=== PATIENT | female | born 1995 | race Caucasian/White ===

== ENCOUNTER 2017-03-01 01:44 | Emergency (ER) | payer BC, OTHER ==
--- NOTE | ~2017-03-01 | CR243 ---
[facility]. [facility] A Service of [facility] & [facility] RADIOLOGY TEXT RESULTS PATIENT: ODETTE CROW LOCATION: SED : [birth year] UNIT #: [id number] AGE: [address]: Mine Shook MD SEX: F ORDER DR: [id number] [place] [id number] E MR#: [id number] Acc #: [id number] NAME: ODETTE CROW : 1995 SEX: F STUDY DATE/TIME: 03/01/2017 02:41 UNIT: SED ROOM: STUDY DESCRIPTION: CR Thoracic Spine 3 Views Attending Physician: Mine Shook M.D. Ordering Physician: Mine Shook M.D. Primary Care Physician: Eduar Navarro M.D. MEDICAL IMAGING REPORT This report is preliminary unless electronic signature is present. EXAM Thoracic sine, 03/01/2017 at 02:41 INDICATION Mid to upper back pain that started Sunday of this week. FINDINGS 3 views of the thoracic spine were obtained and compared with 10/25/2013. No fracture or malalignment is seen. Routine body heights and disc spaces are normal. Incidental note is made of gas-filled colon loops under the right hemidiaphragm. IMPRESSION Normal thoracic spine. Gas-filled colon loops are noted under the right hemidiaphragm. Dictated by... Jimmy Luong Jr., M.D. THIS IS AN ELECTRONICALLY VERIFIED REPORT Jimmy Luong Jr., M.D. at 03/01/2017 6:10 AM VITALY/margarita TD: 03/01/2017 04:50 JOB #: [id number] MEDICAL IMAGING REPORT Page 1 of 1
[~2017-03-01 01:44] MED LIST: AFRIN NASAL SPR15 ML; AMOXICILLIN PO; AMOXICILLIN500 M1 PO; AMOXICILLIN875 MG PO; BACTRIM DS TABL1 TAB PO; IBUPROFEN PO; IBUPROFEN800 MG PO; KEFLEX500 M1 PO; MOTRIN400 MG PO; NO MEDICATIONS; NORFLEX100 M1 PO; PHENERGAN DM1 ML DOB; PHENERGAN DM1 ML PO; VOLTAREN75 MG PO; ZITHROMAX PO; ZITHROMAX1 G/PKT PO; ZOFRAN ODT4 MG PO; ZYRTEC-D TABLE1 EACH PO
[2017-03-01 02:28] LABS: URINE SOURCE CLEAN CATCH
[2017-03-01 02:31] LABS: BASOPHIL% 0.5 % (0-2.5); EOSINOPHIL# 0.2 X10e3 (0-0.7); EOSINOPHIL% 1.8 % (0.0-7.0); HEMATOCRIT 40.2 % (35.0-45.0); HEMOGLOBIN 13.7 gm/dL (12.0-16.0); LYMPHOCYTE# 2.8 X10e3 (1.0-3.5); LYMPHOCYTE% 32.8 % (17.0-45.0); MEAN CELL VOLUME 90.5 FL (83-96); MEAN CORPUSCULAR HEMOGLOBIN 30.8 PG (28-34); MEAN CORPUSCULAR HGB CONC 34.1 g/dL (30-36); MEAN PLATELET VOLUME 8.9 FL (6.5-11.5); MONOCYTE# 0.5 X10e3 (0-1.0); MONOCYTE% 6.4 % (3.0-12.0); NEUTROPHIL% 58.5 % (40-75); PLATELET COUNT 203 X10e3 (140-420); RED BLOOD COUNT 4.44 X10e (3.90-5.30); RED CELL DISTRIBUTION WIDTH 12.3 % (11.0-15.5); URINE APPEARANCE CLEAR; URINE BILIRUBIN NEG (NEG); URINE BLOOD NEG (NEG); URINE COLOR YELLOW; URINE GLUCOSE NEG (NORM); URINE KETONE NEG (NEG); URINE LEUKOCYTE ESTERASE NEG (NEG); URINE NITRATE NEG (NEG); URINE PROTEIN NEG (NEG); URINE SPECIFIC GRAVITY 1.015 (1.003-1.035); URINE UROBILINOGEN 0.2 MG/DL (NORM); WHITE BLOOD COUNT 8.6 X10e3 (4.0-10.5)
[2017-03-01 02:33] LABS: MICRO INDICATED? NO
[2017-03-01 02:34] LABS: DIFF IND NO
[2017-03-01 02:48] LABS: ALBUMIN SERUM 4.1 g/dL (3.5-5.0); ALKALINE PHOSPHATASE 54 U/L (32-92); ALT (SGPT) 18 U/L (10-40); AMYLASE 20 U/L (0-46); AST (SGOT) 15 U/L (10-42); BILIRUBIN, DIRECT <0.1 mg/dL (0.0-0.2); BILIRUBIN,INDIRECT 0.1 mg/dL (0.0-0.9); BILIRUBIN,TOTAL 0.2 mg/dL (0.2-2.0); BLOOD UREA NITROGEN 7 mg/dL (9-23); CALCIUM SERUM 9.4 mg/dL (8.4-10.2); CARBON DIOXIDE 26 mmol/L (22-31); CHLORIDE 104 mmol/L (100-111); CREATININE SERUM 0.4 mg/dL (0.6-1.4); GLOM FILT RATE Estimated 147.9 mL/min (>60); GLUCOSE FASTING 111 mg/dL (70-110); LIPASE 33 U/L (22-51); POTASSIUM 3.2 mmol/L (3.5-5.1); PROTEIN TOTAL SERUM 7.4 g/dL (6.0-8.3); SODIUM 139 mmol/L (135-145)
== END 2017-03-01 03:45 | disposition home or self-care (01) ==
LOC: SED 01:44
PROVIDERS: Emergency Medicine
DX: R10.9 Unspecified abdominal pain (principal); Z91.040 Latex allergy status
CPT/HCPCS: 36415; 72072; 80048; 80076; 81003; 82150; 83690; 84703; 85025; 99284

== ENCOUNTER 2017-04-26 09:16 | Emergency (ER) | payer BC, OTHER | END 2017-04-26 10:57 | disposition home or self-care (01) | LOC: SED 09:16 | DX: J06.9 Acute upper respiratory infection, unspecified (principal); F17.200 Nicotine dependence, unspecified, uncomplicated | CPT/HCPCS: 87651; 99283 ==

== ENCOUNTER 2017-04-28 21:27 | Emergency (ER) | payer BC, OTHER ==
[~2017-04-28] VITALS: Ht 167.6 cm; Wt 54.4 kg
[2017-04-28 23:02] LABS: URINE SOURCE CLEAN CATCH
[2017-04-28 23:04] LABS: URINE APPEARANCE CLEAR; URINE BILIRUBIN NEG (NEG); URINE BLOOD NEG (NEG); URINE COLOR YELLOW; URINE GLUCOSE NEG (NORM); URINE KETONE NEG (NEG); URINE LEUKOCYTE ESTERASE NEG (NEG); URINE NITRATE NEG (NEG); URINE PROTEIN NEG (NEG); URINE UROBILINOGEN 0.2 MG/DL (NORM)
[2017-04-28 23:07] LABS: MICRO INDICATED? NO
== END 2017-04-29 00:28 | disposition home or self-care (01) ==
LOC: SED 21:27
PROVIDERS: Nurse Practitioner Family
DX: R10.2 Pelvic and perineal pain (principal); F17.210 Nicotine dependence, cigarettes, uncomplicated; Z91.040 Latex allergy status
CPT/HCPCS: 81003; 84703; 99284

== ENCOUNTER 2017-05-29 01:31 | Emergency (ER) | payer BC, OTHER ==
[~2017-05-29] VITALS: Ht 167.6 cm; Wt 59.0 kg
== END 2017-05-29 02:08 | disposition home or self-care (01) ==
LOC: SED 01:31
DX: J41.0 Simple chronic bronchitis (principal); J06.9 Acute upper respiratory infection, unspecified; F17.200 Nicotine dependence, unspecified, uncomplicated; Z91.040 Latex allergy status
CPT/HCPCS: 99283